=== PATIENT | female | born 1950 | race Caucasian/White ===

== ENCOUNTER → 2020-03-28 | Outpatient (CLI) | payer MEDICARE, OTHER ==
[~2020-03-28] MED LIST: BUPROPION XL150 MG PO; CELEXA10 MG PO; COLACE100 MG PO; ENOXAPARIN40 MG/0.4 SC; FERROUS SULFAT325 M2 PO; GLUCOPHAGE XR500 MG PO; HUMALOG 10100 UNITS/ SC; K-TAB ER20 MEQ PO; LEXAPRO10 MG PO; LOSARTAN POTASS25 MG PO; LOSARTAN-HCTZ1 EAC2 PO; MIRALAX17 GM PO; OXYCODONE HCL5 MG PO; PROAIR HFA8.5 GM INH; PROTONIX40 MG PO; ROXICODONE TAB 55 MG PO; SYNTHROID88 MCG PO
== END ==
LOC: RAD 15:51
DX: M54.5 Low back pain (principal); M16.11 Unilateral primary osteoarthritis, right hip; M47.816 Spondylosis without myelopathy or radiculopathy, lumbar region; M85.88 Other specified disorders of bone density and structure, other site; M47.817 Spondylosis without myelopathy or radiculopathy, lumbosacral region
CPT/HCPCS: 72100; 73502

== ENCOUNTER → 2020-06-13 | Outpatient (CLI) | payer MEDICARE | LOC: MAMO 06-03 10:00 | DX: R92.8 Other abnormal and inconclusive findings on diagnostic imaging of breast (principal); N64.4 Mastodynia | CPT/HCPCS: 77065; G0279 ==

== ENCOUNTER 2020-10-19 09:40 | Emergency (ER) | payer MEDICARE ==
[~2020-10-19] VITALS: Ht 172.7 cm; Wt 81.6 kg
[2020-10-19 11:52] LABS: HEMOGLOBIN 14.3 gm/dl (12.3-15.3); RED BLOOD COUNT 4.84 M/UL (4.00-5.10); WHITE BLOOD COUNT 4.2 K/UL (4.5-11.0)
[2020-10-19 12:14] LABS: BUN/CREATININE RATIO 12 (0-10)
== END 2020-10-19 17:00 | disposition home or self-care (01) ==
LOC: ER1 09:40
PROVIDERS: Emergency Medicine
DX: Z23 Encounter for immunization (principal); U07.1 COVID-19; E11.9 Type 2 diabetes mellitus without complications; I10 Essential (primary) hypertension
CPT/HCPCS: 71045; 80053; 82550; 82553; 83605; 83874; 84484; 85025; 85379; 87040; 93005; 99284; J7030; M0243; U0002

== ENCOUNTER → 2021-01-19 | Outpatient (CLI) | payer MEDICARE | LOC: MAMO 12-30 09:30 | DX: Z12.31 Encounter for screening mammogram for malignant neoplasm of breast (principal) | CPT/HCPCS: 77063; 77067 ==